=== PATIENT | male | born 1975 | race Caucasian/White ===

== ENCOUNTER 2017-11-14 21:15 | Emergency (ER) | payer OTHER ==
[~2017-11-14] VITALS: Ht 185.4 cm; Wt 65.8 kg
--- NOTE | 2017-11-14 21:33 | NUR ---
DR TERRI MONAE MD AT BEDSIDE FOR MSE
--- NOTE | 2017-11-14 21:40 | NUR ---
PT AMBULATED TO ER C/O COUGH FOR A FEW DAYS. PT SPEECH CLEAR. PT ABLE TO SPEAK IN COMPELTE SENTENCES. ALL PTS NEEDS ATTENDED & MET. PT RESPIRATIONS AND EVEN UNLABORED. DENIES CHEST PAIN. NO GI/ DISTRESS NOTED. NO ACUTE DISTRESS NOTED.
--- NOTE | 2017-11-14 21:42 | NUR ---
Patient discharged to home in stable conditon. Written and verbal after care instructions given. Patient verbalizes understanding of instructions. Patient left ER and walks in steady gait. No acute distress noted.
[2017-11-14 21:45] VITALS: BP 114/81
== END 2017-11-14 21:46 | disposition home or self-care (01) ==
LOC: ER 21:18
DX: J06.9 Acute upper respiratory infection, unspecified (principal)
CPT/HCPCS: 99282; A4663